=== PATIENT | male | born 1990 | race Caucasian/White ===

== ENCOUNTER 2018-08-27 12:43 | Emergency (ER) | payer SELFPAY ==
[~2018-08-27] VITALS: Ht 175.3 cm; Wt 74.0 kg
[2018-08-27 13:05] VITALS: BP 127/97
--- NOTE | 2018-08-27 13:08 | NUR ---
PT AMBULATES BACK TO THE LOBBY
--- NOTE | 2018-08-27 13:34 | NUR ---
Patient ambulated to bed 5. RN evaluating patient at bedside.
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
[2018-08-27 16:10] VITALS: BP 124/88
[2018-08-27 16:47] LABS: BARBITURATE, URINE NEG. ng/ml (NEG <=200); BENZODIAZEPINE, URINE NEG. ng/mL (NEG <=200); CANNABINOID, URINE NEG. ng/mL (NEG <=50); COCAINE, URINE NEG. ng/mL (NEG <=300); OPIATE, URINE NEG. ng/mL (NEG <=2000); PHENCYCLIDINE SCREEN,URINE NEG. ng/mL (NEG <=25)
== END 2018-08-27 16:10 | disposition home or self-care (01) ==
LOC: MED 12:43
DX: F41.9 Anxiety disorder, unspecified (principal); F17.200 Nicotine dependence, unspecified, uncomplicated
CPT/HCPCS: 71101; 80305; 99284